=== PATIENT | male | born 1970 | race Caucasian/White ===

== ENCOUNTER 2022-06-02 17:53 | Emergency (ER) | payer OTHER, SELFPAY ==
--- NOTE | 2022-06-02 18:24 | XRR_ITS ---
PROCEDURE INFORMATION: Exam: XR Abdomen Exam date and time: 06/02/2022 7:26 PM Age: 51 years old Clinical indication: Abdominal pain; Acute; Additional info: Constipation TECHNIQUE: Imaging protocol: Radiologic exam of the abdomen. Views: Frontal supine view of the abdomen. 1 View. COMPARISON: No relevant prior studies available. FINDINGS: Gastrointestinal tract: Normal. No bowel dilation. Bones/joints: Unremarkable. XR/XR KUB [id number] IMPRESSION: No acute findings.
[2022-06-02 18:55] VITALS: BP 157/100; PULSE 95; RESP 16; TEMP 37.2; O2SAT 99; BMI 27.1
[2022-06-02 20:04] VITALS: BP 167/97; PULSE 101; RESP 18; O2SAT 98
--- NOTE | 2022-06-02 21:52 | CTR_ITS ---
PROCEDURE INFORMATION: Exam: CT Abdomen And Pelvis Without Contrast Exam date and time: 06/02/2022 9:57 PM Age: 51 years old Clinical indication: Constipation; Abdominal pain; Patient HX: Bilateral flank pain with no bm x 3 days. TECHNIQUE: Imaging protocol: Computed tomography of the abdomen and pelvis without contrast. Radiation optimization: All CT scans at this facility use at least one of these dose optimization techniques: automated exposure control; mA and/or kV adjustment per patient size (includes targeted exams where dose is matched to clinical indication); or iterative reconstruction. REPORTING DATA: Count of CT and Cardiac NM exams in prior 12 months: This patient has received 0 known CTs and 0 known cardiac nuclear medicine studies in the 12 months prior to the current study. COMPARISON: CR (ABDOMEN, ) 06/02/2022 7:26 PM RADIATION DOSE METRICS: Total DLP (mGy-cm): 693.93 FINDINGS: Lungs: Left lower lobe 3.3 mm pulmonary nodule with an additional 3.6 mm pulmonary nodule, consider dedicated chest CT for further evaluation. Liver: Cirrhotic liver suspected. Gallbladder and bile ducts: Normal. No calcified stones. No ductal dilation. Pancreas: Normal. No ductal dilation. Spleen: Spleen enlarged at 13.8 cm. Adrenal glands: Normal. No mass. Kidneys and ureters: Normal. No hydronephrosis. Stomach and bowel: Constipation. Appendix: No evidence of appendicitis. Intraperitoneal space: Unremarkable. No free air. No significant fluid collection. Vasculature: Unremarkable. No abdominal aortic aneurysm. Lymph nodes: Unremarkable. No enlarged lymph nodes. Urinary bladder: Mild urinary bladder wall thickening may be due to nondistention, please correlate for possible cystitis Reproductive: Unremarkable as visualized. Bones/joints: Unremarkable. No acute fracture. Soft tissues: Unremarkable. CT/CT kidney stone [id number] IMPRESSION: 1. Negative for acute inflammatory process in the abdomen or pelvis. 2. Mild urinary bladder wall thickening may be due to nondistention, please correlate for possible cystitis 3. Left lower lobe 3.3 mm pulmonary nodule with an additional 3.6 mm pulmonary nodule, consider dedicated chest CT for further evaluation. 4. Cirrhotic liver suspected. 5. Constipation. 6. Spleen enlarged at 13.8 cm.
--- NOTE | 2022-06-02 21:55 | ED_ITS ---
HPI - Abdominal Pain General: Chief Complaint: Abdominal Pain Stated Complaint: Constpation Time Seen by Provider: 06/02/22 21:40 Source: patient History of Present Illness: 51-year-old male who comes in complaining of abdominal pain and constipation. The patient states he started having burning with urination and pain at the tip of his penis and bilateral flank pain approximately 5 days ago. He thought he maybe had a urinary tract infection so he started taking Azo. He states for the past 4 days, has not been able to have a bowel movement. He has been passing flatus. No previous abdominal surgeries. He tried drinking lots of fluids as well as using a suppository with no results. He has not had a fever. He denies hematuria. He has not been vomiting. Review of Systems Narrative: See HPI Physical Exam Const: COMMON NORMALS: no acute distress, healthy appearing and well nourished HENMT: COMMON NORMALS: normocephalic, external ears normal, Normal external nose present and moist oral mucous membranes HEAD & SCALP: normocephalic NOSE: Normal external nose present EXTERNAL EAR: Yes external ears normal Eye: COMMON NORMALS: Equal, round and reactive pupils present, EOMs intact bilaterally and no scleral icterus PUPIL: Yes Equal, round and reactive pupils present Neck/C-Spine: COMMON NORMALS: no meningeal signs Resp: COMMON NORMALS: normal respiratory effort, No use of accessory muscles and clear to auscultation bilaterally AUSCULTATION: clear to auscultation bilaterally Cardio: COMMON NORMALS: regular rate and regular rhythm RATE: regular rate RHYTHM: regular rhythm GI: COMMON NORMALS: Normal to inspection, nondistended, normoactive bowel sounds present and Soft to palpation PALPATION: Yes Soft to palpation OTHER: Decreased bowel sounds, abdomen is soft, no rebound or guarding, diffuse tenderness Extremity: OTHER: No swelling or tenderness Neuro: MENINGEAL SIGNS: Yes no meningeal signs Course ED course: Patient's had an IV placed and labs obtained. He has been given IV fluids. His laboratory studies do reveal an elevated white blood cell count of 16.9. On CT, he has constipation but no other acute intra-abdominal findings. There is no intrarenal or ureteral stones. Patient's been given IV Toradol for pain. Vital Signs: Vital signs: Vital Signs Temperature 98.9 F 06/02/22 18:55 Pulse Rate 101 H 06/02/22 20:04 Respiratory Rate 18 06/02/22 20:04 Blood Pressure 167/97 06/02/22 20:04 Pulse Oximetry 98 06/02/22 20:04 Oxygen Delivery Me thod 06/02/22 20:04 MDM - Abdominal Pain Medical Decision Making Treatment for [id number] male who presents with a 5-day history of dysuria with associated constipation. No vomiting or fever. Hypoactive bowel sounds with diffuse abdominal tenderness on examination. KUB is unremarkable. Concern for possible UTI versus kidney stone versus bowel obstruction versus constipation. Urinalysis does show UTI. CT shows changes consistent with constipation. The patient's been given a dose of. He has been sent home with GoLytely. Recommend that he also take MiraLAX daily and Colace twice daily. We will place him on Keflex 500 mg 3 times daily x7 days. Urine culture has been sent. Lab Data 06/02/22 22:10 06/02/22 22:10 Labs/Radiology: Radiology Impressions KUB X-Ray 06/02/22 18:24 IMPRESSION: No acute findings. Abdomen/Pelvis CT 06/02/22 21:52 IMPRESSION: 1. Negative for acute inflammatory process in the abdomen or pelvis. 2. Mild urinary bladder wall thickening may be due to nondistention, please correlate for possible cystitis 3. Left lower lobe 3.3 mm pulmonary nodule with an additional 3.6 mm pulmonary nodule, consider dedicated chest CT for further evaluation. 4. Cirrhotic liver suspected. 5. Constipation. 6. Spleen enlarged at 13.8 cm. Laboratory Results WBC 16.9 10^3/uL (4.0-10.0) H 06/02/22 22:10 RBC 5.09 10^6/uL (4.1-5.3) 06/02/22 22:10 Hgb 15.7 g/dL (11.7-16.6) 06/02/22 22:10 Hct 46.5 % (42.0-52.0) 06/02/22 22:10 MCV 91.4 fl (80-94) 06/02/22 22:10 MCH 30.8 pg (28.0-34.0) 06/02/22 22:10 MCHC 33.8 g/dL (30.0-36.0) 06/02/22 22:10 RDW 12.1 % (12.1-15.1) 06/02/22 22:10 Plt Count 260 10^3/cmm (130-400) 06/02/22 22:10 MPV 9.8 fL (7.4-10.4) 06/02/22 22:10 Neut % (Auto) 76.4 % 06/02/22 22:10 Lymph % (Auto) 15.4 % 06/02/22 22:10 [place] % (Auto) 6.6 % 06/02/22 22:10 Eos % (Auto) 0.7 % 06/02/22 22:10 Baso % (Auto) 0.5 % 06/02/22 22:10 Neut # (Auto) 12.94 10^3/uL (1.8-7.7) H 06/02/22 22:10 Lymph # (Auto) 2.6 10^3/uL (0.8-4.8) 06/02/22 22:10 [place] # (Auto) 1.1 10^3/uL (0.2-0.9) H 06/02/22 22:10 Eos # (Auto) 0.1 10^3/uL (0.0-0.8) 06/02/22 22:10 Baso # (Auto) 0.1 10^3/uL (0.0-0.1) 06/02/22 22:10 Nucleated RBC % (auto) 0 % 06/02/22 22:10 Nucleated RBCs # 0.0 /100WBC 06/02/22 22:10 Sodium 136 mmol/L (136-145) 06/02/22 22:10 Potassium 4.0 mmol/L (3.5-5.1) 06/02/22 22:10 Chloride 97 mmol/L (98-107) L 06/02/22 22:10 Carbon Dioxide 25 mmol/L (22-29) 06/02/22 22:10 Anion Gap 18.0 (5-19) 06/02/22 22:10 BUN 9 mg/dL (6-20) 06/02/22 22:10 Creatinine 0.8 mg/dL (0.7-1.2) 06/02/22 22:10 GFR Calculation 101.5 mL/min (90-130) 06/02/22 22:10 Glucose 125 mg/dL (65-115) H 06/02/22 22:10 Calculated Osmolality 282 mOsm/kg (285-295) L 06/02/22 22:10 Calcium 9.1 mg/dL (8.5-10.5) 06/02/22 22:10 Total Bilirubin 1.0 mg/dL (0.15-1.2) 06/02/22 22:10 AST 52 U/L (0-40) H 06/02/22 22:10 ALT 125 U/L (0-41) H 06/02/22 22:10 Alkaline Phosphatase 146 U/L (40-130) H 06/02/22 22:10 Total Protein 7.6 g/dL (6.6-8.7) 06/02/22 22:10 Albumin 3.8 g/dL (3.5-5.2) 06/02/22 22:10 Globulin 3.8 g/dL (1.3-4.6) 06/02/22 22:10 Lipase 22 U/L (13-60) 06/02/22 22:10 Urine Color [place] (Yellow) 06/02/22 23:00 Urine Appearance Sl hazy (CLEAR) A 06/02/22 23:00 Urine pH 7 (5-7) 06/02/22 23:00 Ur Specific [place] 1.005 (1.005-1.030) 06/02/22 23:00 Urine Protein Trace (Negative) 06/02/22 23:00 Urine Glucose (UA) Norm (Normal) 06/02/22 23:00 Urine Ketones 1+ (Negative) H 06/02/22 23:00 Urine Blood 3+ (Negative) H 06/02/22 23:00 Urine Nitrate Positive (Negative) H 06/02/22 23:00 Urine Bilirubin Neg (Negative) 06/02/22 23:00 Urine Urobilinogen Norm mg/dL (Negative) 06/02/22 23:00 Ur Leukocyte Esterase 2+ (Negative) H 06/02/22 23:00 Urine RBC 15-25 /hpf (0-2) H 06/02/22 23:00 Urine WBC >100 /hpf (0-5) H 06/02/22 23:00 Ur Squamous Epith Cells 0-4 /hpf (0-5) H 06/02/22 23:00 Amorphous Sediment Not Reportable 06/02/22 23:00 Urine Bacteria 2+ /hpf (NONE) H 06/02/22 23:00 Discharge Plan Discharge Patient Disposition: Home Clinical Impression: Constipation, Urinary tract infection Condition: Stable Prescriptions: New cephalexin 500 mg capsule 500 mg PO Q8H 7 Days Qty: 21 0RF Discharge Orders: Discharge ED (Routine); Ordered 06/02/22 Ordered By: Elva Roberson Discharge Diet: Advance as tolerated Discharge Activity: Resume usual activity Patient Instructions: Constipation (DC), Urinary Tract Infection in Men (DC), Opioid Safety, Pain Management Activity Restrictions/Additional Instructions: Take the antibiotics 3 times daily until completely gone. Make sure you are drinking plenty of fluids. Take MiraLAX daily and Colace twice daily. Return to the ER if you are having increased pain, persistent fever or vomiting. You can take Tylenol and ibuprofen as needed for pain and fever. Follow-up next week with your primary care doctor. Coding Level of Care Code ED Household Appliance Installer for Myrna King
[2022-06-02] MEDS: ketorolac 30 mg/mL INJ 15 MG IVP (22:07)
[2022-06-02] MEDS: sodium chloride 0.9% 1,000 ML 999 ML IV (22:07)
[2022-06-02 22:16] LABS: Basophils # 0.1 10^3/uL (0.0-0.1); Basophils % 0.5 %; Eosinophils # 0.1 10^3/uL (0.0-0.8); Eosinophils % 0.7 %; Hematocrit 46.5 % (42.0-52.0); Hemoglobin 15.7 g/dL (11.7-16.6); Lymphocytes # 2.6 10^3/uL (0.8-4.8); Lymphocytes % 15.4 %; Mean Corpuscular HGB Conc 33.8 g/dL (30.0-36.0); Mean Corpuscular Hemoglobin 30.8 pg (28.0-34.0); Mean Corpuscular Volume 91.4 fl (80-94); Mean Platelet Volume 9.8 fL (7.4-10.4); Monocytes # 1.1 10^3/uL (0.2-0.9); Monocytes % 6.6 %; Neutrophils # 12.94 10^3/uL (1.8-7.7); Neutrophils % 76.4 %; Nucleated Red Blood Cells % 0 %; Platelet Count 260 10^3/cmm (130-400); Red Blood Count 5.09 10^6/uL (4.1-5.3); Red Cell Distribution Width 12.1 % (12.1-15.1); White Blood Count 16.9 10^3/uL (4.0-10.0)
[2022-06-02 22:41] LABS: Alanine Aminotransferase 125 U/L (0-41); Albumin Level 3.8 g/dL (3.5-5.2); Alkaline Phosphatase 146 U/L (40-130); Aspartate Amino Transferase 52 U/L (0-40); Blood Urea Nitrogen 9 mg/dL (6-20); Calcium 9.1 mg/dL (8.5-10.5); Carbon Dioxide 25 mmol/L (22-29); Chloride 97 mmol/L (98-107); Creatinine Clr Calc Pharmacy 126.5721; Globulin 3.8 g/dL (1.3-4.6); Glomerular Filtration Rate 101.5 mL/min (90-130); Glucose 125 mg/dL (65-115); Lipase 22 U/L (13-60); Osmolality Calculated 282 mOsm/kg (285-295); Sodium 136 mmol/L (136-145); Total Protein 7.6 g/dL (6.6-8.7)
[2022-06-02 23:08] LABS: Glucose Urine UA Norm (Normal); Protein Urine Trace (Negative); Specific Gravity, Urine 1.005 (1.005-1.030); Urine Appearance SL Hazy (CLEAR); Urine Color Orange (Yellow); pH Urine 7 (5-7)
[2022-06-02 23:09] LABS: Add Urine Microscopic? YES; Bilirubin Urine Neg (Negative); Blood Urine 3+ (Negative); Ketones Urine 1+ (Negative); Leukocyte Esterase Urine 2+ (Negative); Nitrate Urine Positive (Negative); Urobilinogen Urine Norm (Negative)
[2022-06-02 23:17] LABS: WBC Urine >100 /hpf (0-5)
[2022-06-02 23:19] LABS: Add Urine Culture? Yes; Bacteria Urine 2+ /hpf; RBC Urine 15-25 /hpf (0-2); Squamous Epithelial Cell Urine 0-4 /hpf (0-5)
[2022-06-02] MEDS: cephALEXin 500 mg Capsule PO (23:23)
[2022-06-02] MEDS: peg /e-lyte soln 4,000 mL Btl 1500 ML PO (23:24)
[2022-06-02 23:28] VITALS: BP 150/89; RESP 16; O2SAT 98
--- NOTE | 2022-06-13 16:03 | DCPLANNER ---
Addendum entered by Pita Colunga 06/21/22 08:46: Patient had a follow up appointment to [facility] hospital [facility] at [facility] - patient did not attend appointment. Addendum entered by Pita Colunga 06/13/22 16:04: aviation manager called [facility] - gave clinic patients information - a follow up appointment was scheduled for Monday, June 20, 2022 at 11:[address] Thornton. aviation manager called patient and gave him the appointment information. Original Note: 06.11.22 - patient was called due to no primary care physician - patient stated that he would like help in getting established with a primary care physician.
== END 2022-06-02 23:30 | disposition home or self-care (01) ==
PROVIDERS: Emergency Provider Emergency Medicine
DX: K59.00 Constipation, unspecified (principal); N39.0 Urinary tract infection, site not specified
CPT/HCPCS: 74018; 74176; 80053; 81001; 83690; 85025; 87077; 87086; 87186; 96361; 96374; 99285; J1885; J7030

== ENCOUNTER 2022-12-29 14:24 | Emergency (ER) | payer SELFPAY ==
[2022-12-29 14:27] VITALS: BP 163/86; PULSE 77; RESP 14; TEMP 36.6; O2SAT 98; BMI 27.1
--- NOTE | 2022-12-29 14:31 | XR_ITS ---
WS: [id number] views of the left fourth finger, 12/29/2022 Clinical Data: 4th finger laceration Comparison: None. Findings: No fractures or dislocations are seen. There is a soft tissue indentation of the tip of the left four th finger overlying the ungual tuft. No foreign bodies or fractures are seen.. The remainder of the f ingers is normal. There is cystic change of the scaphoid which may be osteonecrosis from an unhealed fracture. Impression: Soft tissue injury to the ungual tuft of distal phalanx of the left fourth finger but no fracture or foreign body is seen.
[2022-12-29] MEDS: tetanus-dipt-pertussis 0.5 mL SDV IM (14:54)
[2022-12-29] MEDS: HYDROcodone-acetaminophen 5-325 mg Tablet 1 TAB PO (14:56)
--- NOTE | 2022-12-29 16:54 | ED_ITS ---
Documented by User: Josi Pang, OCCUPATIONAL HEALTH MANAGER-C 12/29/22 17:01 HPI - Wound/Laceration General: Chief Complaint: Wound/Laceration Stated Complaint: left hand finger cut Time Seen by Provider: 12/29/22 14:31 History of Present Illness: Patient is in today for finger laceration. He reports that he got his left fourth finger cyst caught in the saw at home. Patient reports that he knows that there is no suture repair that can be done for that a big chunk of skin is missing. He states that he really just wants to have x-rays to make sure that it is not broken and also up-to-date on his tetanus. He cannot recall his last tetanus vaccination. Review of Systems Skin/Breast: Reports: other (Skin avulsion/laceration to the left fourth finger from a circular saw) Physical Exam Const: COMMON NORMALS: no acute distress, patient oriented x3 and alert Resp: COMMON NORMALS: normal respiratory effort and No use of accessory muscles Neuro: COMMON NORMALS: patient oriented x3 SENSORIUM/ORIENTATION: Yes alert Skin: OTHER: Left fourth finger lateral tip there is a large skin avulsion where part of the pad is avulsed. This does not involve the nailbed. The bleeding is controlled. CSM within normal limits to the finger. Course Vital Signs: Vital signs: Vital Signs Temperature 97.8 F 12/29/22 14:27 Pulse Rate 77 12/29/22 14:27 Respiratory Rate 14 12/29/22 14:27 Blood Pressure 163/86 12/29/22 14:27 Pulse Oximetry 98 12/29/22 14:27 Oxygen Delivery Me thod Room Air 12/29/22 14:27 MDM - Wound/Laceration Medical Decision Making Patient is in for skin avulsion to the finger. X-ray shows soft tissue injury to the ungual tuft of the left fourth finger with no fracture appreciated. Patient is not concerned about healing results and does not want referred to orthopedics. He states that he does not want to undergo skin grafting or anything else. He wants to allow this to heal by natural intent. Updated tetanus vaccination today. One-time dose of hydrocodone was provided in ER today. The wound was irrigated extensively and dressed with Xeroform gauze and Telfa and then padded with an aluminum splint just for protection. Advised patient to monitor closely for signs and symptoms of infection prophylactic antibiotic cephalexin was given to the patient. Advised patient to return to the ER as needed for new or worsening symptoms. No radiology studies performed this visit Discharge Plan Discharge Patient Disposition: Home Clinical Impression: Avulsion of skin Condition: Stable Prescriptions: New cephalexin 500 mg capsule 500 mg PO BID 7 Days Qty: 14 0RF Discharge Orders: Discharge ED (Routine); Ordered 12/29/22 Ordered By: Josi Pang Discharge Diet: Usual diet Discharge Activity: Resume usual activity Patient Instructions: Skin Avulsion (ED), Opioid Safety, Pain Management Activity Restrictions/Additional Instructions: Take antibiotics as directed. Keep wound clean and dry. Use padded dressing and finger splint to protect the wound for the next few days. Your tetanus was updated today in the ER. Follow-up with your primary care provider. Return to the ER as needed for new or worsening symptoms Coding Level of Care Code ED Electronic Commerce Specialist for Chg Fwd Documented by User: Casey Zamora DO 12/30/22 06:31 HPI - Wound/Laceration General: Chief Complaint: Wound/Laceration Stated Complaint: left hand finger cut Time Seen by Provider: 12/29/22 14:31 Course Vital Signs: Vital signs: Vital Signs Temperature 97.8 F 12/29/22 14:27 Pulse Rate 77 12/29/22 14:27 Respiratory Rate 14 12/29/22 14:27 Blood Pressure 163/86 12/29/22 14:27 Pulse Oximetry 98 12/29/22 14:27 Oxygen Delivery Me thod Room Air 12/29/22 14:27 MDM - Wound/Laceration Medical Decision Making Patient is in for skin avulsion to the finger. X-ray shows soft tissue injury to the ungual tuft of the left fourth finger with no fracture appreciated. Patient is not concerned about healing results and does not want referred to orthopedics. He states that he does not want to undergo skin grafting or anything else. He wants to allow this to heal by natural intent. Updated tetanus vaccination today. One-time dose of hydrocodone was provided in ER today. The wound was irrigated extensively and dressed with Xeroform gauze and Telfa and then padded with an aluminum splint just for protection. Advised patient to monitor closely for signs and symptoms of infection prophylactic antibiotic cephalexin was given to the patient. Advised patient to return to the ER as needed for new or worsening symptoms. Chart reviewed and patient discussed with midlevel. Agree with assessment and plan. Discharge Plan Discharge Patient Disposition: Home Clinical Impression: Avulsion of skin Condition: Stable Prescriptions: New cephalexin 500 mg capsule 500 mg PO BID 7 Days Qty: 14 0RF Discharge Orders: Discharge ED (Routine); Ordered 12/29/22 Ordered By: Josi Pang Discharge Diet: Usual diet Discharge Activity: Resume usual activity Patient Instructions: Skin Avulsion (ED), Opioid Safety, Pain Management Activity Restrictions/Additional Instructions: Take antibiotics as directed. Keep wound clean and dry. Use padded dressing and finger splint to protect the wound for the next few days. Your tetanus was updated today in the ER. Follow-up with your primary care provider. Return to the ER as needed for new or worsening symptoms Coding Level of Care Code ED Electronic Commerce Specialist for Myrna King
== END 2022-12-29 15:13 | disposition home or self-care (01) ==
PROVIDERS: Emergency Provider Nurse Practitioner Family
DX: S61.215A Laceration without foreign body of left ring finger without damage to nail, initial encounter (principal); W27.0XXA Contact with workbench tool, initial encounter; Z23 Encounter for immunization
CPT/HCPCS: 73140; 90471; 90715; 99283

== ENCOUNTER 2023-09-18 19:50 | Emergency (ER) | payer SELFPAY ==
[2023-09-18 19:52] VITALS: BMI 27.1
--- NOTE | 2023-09-18 20:03 | CTR_ITS ---
PROCEDURE INFORMATION: Exam: CT Head Without Contrast Exam date and time: 09/18/2023 8:13 PM Age: 52 years old Clinical indication: Dizziness TECHNIQUE: Imaging protocol: Computed tomography of the head without contrast. Sagittal and coronal reformatted images were created and reviewed. Radiation optimization: All CT scans at this facility use at least one of these dose optimization techniques: automated exposure control; mA and/or kV adjustment per patient size (includes targeted exams where dose is matched to clinical indication); or iterative reconstruction. COMPARISON: No relevant prior studies available. RADIATION DOSE METRICS: Total DLP (mGy-cm): 1074.9 FINDINGS: Brain: No acute intracranial hemorrhage. No acute infarct. No intra-axial or extra-axial masses. Hall-white matter differentiation is preserved. No cerebral edema. No extra-axial fluid collections. No midline shift. No evidence for Chiari 1 malformation. Cerebral ventricles: No hydrocephalus. Paranasal sinuses: Extensive opacification in the left sphenoid and bilateral maxillary sinuses and mild opacification in the left frontal sinus. Mastoid air cells: Mastoid air cells are clear bilaterally. Orbital cavities: No acute abnormality in the visualized orbits. Bones: Unremarkable. No acute fracture. Soft tissues: No acute abnormality of the extracranial soft tissues. CT/CT head wo con* [id number] IMPRESSION: 1. No acute abnormality of the brain. 2. Extensive opacification in the left sphenoid and bilateral maxillary sinuses and mild opacification in the left frontal sinus.
--- NOTE | 2023-09-18 20:03 | XRR_ITS ---
PROCEDURE INFORMATION: Exam: XR Chest Exam date and time: 09/18/2023 8:11 PM Age: 52 years old Clinical indication: Other: Dizziness TECHNIQUE: Imaging protocol: Radiologic exam of the chest. Views: 1 view. COMPARISON: No relevant prior studies available. FINDINGS: Lungs: Lungs are clear bilaterally. Pleural spaces: No pleural effusion. No pneumothorax. Heart/Mediastinum: The cardiac silhouette and mediastinal contours are unremarkable. Bones/joints: Unremarkable for age. XR/XR chest 1V portable [id number] IMPRESSION: No acute cardiopulmonary process.
--- NOTE | 2023-09-18 20:06 | ECG_ITS ---
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 Measurements Intervals Leary Rate: 57 P: 53 SC: 136 QRS: 65 QRSD: 94 T: 77 QT: 417 QTc: 407 Interpretive Statements SINUS BRADYCARDIA No previous ECG available for comparison Electronically Signed On 09-22-2023 13:20:27 CDT by Eleuterio De Los Santos M.D. [email or web address]
--- NOTE | 2023-09-18 20:06 | ED_ITS ---
HPI - Neuro Symptoms/Deficit 2 General: Chief Complaint: Neuro Symptoms/Deficit Stated Complaint: facial, right extremity numbness Time Seen by Provider: 09/18/23 19:52 Source: patient and EMS Mode of arrival: EMS Limitations: no limitations History of Present Illness: 52-year-old male states last 2 days he h as felt dizzy lightheaded had some nausea states that tingling in all of his extremities. He does admit to using meth over the weekend and has been exposed to the heat. He had some slight headaches denies any vomiting denies any diarrhea he denies any chest pain. Associated symptoms: Reports nausea; Deny chest pain, headache(s) or vomiting Review of Systems 2 Const: Denies: fever(s), chills, body aches or change in appetite Eyes: Denies: blurry vision ENMT: Denies: throat pain or dental pain Card: Reports: lightheadedness; Denies: chest pain Resp: Denies: dyspnea GI: Reports: nausea; Denies: abdominal pain, vomiting or diarrhea Musc: Denies: neck pain or back pain Skin/Breast: Denies: rash Neuro: Reports: numbness in extremities; Denies: headache(s) NIH stroke score 2 NIHSS: Level Of Consciousness - 1a: 0 Level Of Consciousness Questions - 1b: Both Correct Level Of Consciousness Commands - 1c: Both Correct Best Gaze - 2: Normal Visual Arndt - 3: No Visual Loss Facial Palsy - 4: N ormal Motor Arm Right - 5: No Drift Motor Arm Left - 5: No Drift Motor Leg Right - 6: No Drift Motor Leg Left - 6: No Drift Limb Ataxia - 7: A bsent Sensory - 8: Normal Best Language - 9: No Aphasia Extinction And Inattention - 11: 0 Physical Exam 2 Const: COMMON NORMALS: no acute distress, patient oriented x3 and healthy appearing HENMT: COMMON NORMALS: normocephalic and atraumatic HEAD & SCALP: n ormocephalic and atraumatic Eye: COMMON NORMALS: Equal, round and reactive pupils present and EOMs intact bilaterally PUPIL: Yes Equal, round and reactive pupils present Neck/C-Spine: COMMON NORMALS: full ROM and supple Chest: COMMONS NORMALS: normal inspection of the chest Resp: COMMON NORMALS: normal respiratory effort, No retractions, No use of accessory muscles and clear to auscultation bilaterally AUSCULTATION: clear to auscultation bilaterally Cardio: COMMON NORMALS: regular rate, regular rhythm and No murmurs present (Cardio) RATE: regular rate RHYTHM: regular rhythm Extremity: COMMON NORMALS: normal to inspection and full ROM Neuro: COMMON NORMALS: patient oriented x3, moves all extremities and no focal motor deficits CRANIAL NERVES: Yes CN normal except as noted SPEECH: s peech normal GAIT: Yes Normal gait present MOTOR EXAM: 5/5 motor strength present throughout Psych: COMMON NORMALS: mental status grossly normal, Normal thought process present and cooperative THOUGHT PROCESS: Normal thought process present Skin: COMMON NORMALS: no rashes or lesions noted and no wounds GENERAL SKIN EXAM: no rashes or lesions noted Course 2 Vital Signs: Vital signs: Vital Signs Pulse Rate 71 09/18/23 20:50 Respiratory Rate 28 H 09/18/23 20:50 Blood Pressure 158/88 09/18/23 20:50 Pulse Oximetry 96 09/18/23 20:50 Oxygen Delivery Me thod Room Air 09/18/23 20:50 MDM - Neuro Symptoms/Deficit Medical Decision Making Patient presents here with dizziness likely due to heat exposure while walking methamphetamine abuse he has no signs of stroke. He is ambulatory NIH is 0. Head CT blood work here is all normal he is stable for discharge he is follow-up with PCP return if worsening he understands agrees to plan. Medical Records I reviewed the patient's medical records. Lab Data I reviewed the patient's lab results. 09/18/23 20:30 09/18/23 20:30 Radiology Impressions Chest X-Ray 09/18/23 20:03 IMPRESSION: No acute cardiopulmonary process. Head CT 09/18/23 20:03 IMPRESSION: 1. No acute abnormality of the brain. 2. Extensive opacification in the left sphenoid and bilateral maxillary sinuses and mild opacification in the left frontal sinus. Laboratory Results WBC 6.64 10^3/uL (3.29-11.43) 09/18/23 20:30 RBC 4.62 10^6/uL (3.85-5.65) 09/18/23 20:30 Hgb 14.60 g/dL (11.27-16.99) 09/18/23 20:30 Hct 41.2 % (37-53) 09/18/23 20:30 MCV 89.2 fl (82-101) 09/18/23 20:30 MCH 31.6 pg (27-33) 09/18/23 20:30 MCHC 35.4 g/dL (30-55) 09/18/23 20:30 RDW 11.8 % (12.1-15.1) L 09/18/23 20:30 Plt Count 226 10^3/cmm (157-399) 09/18/23 20:30 MPV 10.2 fL (7.4-10.4) 09/18/23 20:30 Neut % (Auto) 51.5 % 09/18/23 20:30 Lymph % (Auto) 33.6 % 09/18/23 20:30 [place] % (Auto) 8.9 % 09/18/23 20:30 Eos % (Auto) 4.8 % 09/18/23 20:30 Baso % (Auto) 0.9 % 09/18/23 20:30 Neut # (Auto) 3.42 10^3/uL (1.8-7.7) 09/18/23 20:30 Lymph # (Auto) 2.2 10^3/uL (0.8-4.8) 09/18/23 20:30 [place] # (Auto) 0.6 10^3/uL (0.2-0.9) 09/18/23 20:30 Eos # (Auto) 0.3 10^3/uL (0.0-0.8) 09/18/23 20:30 Baso # (Auto) 0.1 10^3/uL (0.0-0.1) 09/18/23 20:30 Nucleated RBC % (auto) 0 % 09/18/23 20:30 Nucleated RBCs # 0.0 /100WBC 09/18/23 20:30 Sodium 136 mmol/L (136-145) 09/18/23 20:30 Potassium 3.3 mmol/L (3.5-5.1) L 09/18/23 20:30 Chloride 102 mmol/L (98-107) 09/18/23 20:30 Carbon Dioxide 23 mmol/L (22-29) 09/18/23 20:30 Anion Gap 14.3 (5-19) 09/18/23 20:30 BUN 13 mg/dL (6-20) 09/18/23 20:30 Creatinine 0.8 mg/dL (0.7-1.2) 09/18/23 20:30 GFR Calculation 101.1 mL/min (90-130) 09/18/23 20:30 Glucose 165 mg/dL (65-115) H 09/18/23 20:30 Calculated Osmolality 286 mOsm/kg (285-295) 09/18/23 20:30 Calcium 9.2 mg/dL (8.5-10.5) 09/18/23 20:30 Total Bilirubin 0.6 mg/dL (0.15-1.2) 09/18/23 20:30 AST 72 U/L (0-40) H 09/18/23 20:30 ALT 104 U/L (0-41) H 09/18/23 20:30 Alkaline Phosphatase 87 U/L (40-130) 09/18/23 20:30 Creatine Kinase 80 U/L (39-308) 09/18/23 20:30 Total Protein 6.9 g/dL (6.6-8.7) 09/18/23 20:30 Albumin 4.0 g/dL (3.5-5.2) 09/18/23 20:30 Globulin 2.9 g/dL (1.3-4.6) 09/18/23 20:30 Ethyl Alcohol < 10 mg/dL (0-10) 09/18/23 20:30 All radiology interpretation(s) finalized by discharge EKG Data EKG 1: I personally reviewed and interpreted this EKG as follows: EKG interpretation date: 09/18/23 EKG interpretation time: 20:39 Interpretation: sinus obed hr [address] or t wave abnormalities qrs 94 qtc 411 Discharge Plan Discharge Patient Disposition: Home Clinical Impression: Dizziness Condition: Stable Discharge Orders: Discharge ED (Routine); Ordered 09/18/23 Ordered By: Sonal Caldwell Discharge Diet: Advance as tolerated Discharge Activity: Resume usual activity Patient Instructions: Dizziness (ED) Coding Level of Care Code ED Billing Department Supervisor for Myrna King
[2023-09-18 20:42] LABS: Basophils # 0.1 10^3/uL (0.0-0.1); Basophils % 0.9 %; Eosinophils # 0.3 10^3/uL (0.0-0.8); Eosinophils % 4.8 %; Hematocrit 41.2 % (37-53); Lymphocytes # 2.2 10^3/uL (0.8-4.8); Lymphocytes % 33.6 %; Mean Corpuscular HGB Conc 35.4 g/dL (30-55); Mean Corpuscular Hemoglobin 31.6 pg (27-33); Mean Corpuscular Volume 89.2 fl (82-101); Mean Platelet Volume 10.2 fL (7.4-10.4); Monocytes # 0.6 10^3/uL (0.2-0.9); Monocytes % 8.9 %; Neutrophils # 3.42 10^3/uL (1.8-7.7); Neutrophils % 51.5 %; Nucleated Red Blood Cells % 0 %; Platelet Count 226 10^3/cmm (157-399); Red Blood Count 4.62 10^6/uL (3.85-5.65); Red Cell Distribution Width 11.8 % (12.1-15.1); White Blood Count 6.64 10^3/uL (3.29-11.43)
[2023-09-18] MEDS: sodium chloride 0.9% 1,000 ML 999 ML IV (20:46)
[2023-09-18] MEDS: LORazepam 2 mg/mL INJ 10 mL MDV 1 MG IVP (20:46)
[2023-09-18 20:50] VITALS: BP 158/88; PULSE 71; RESP 28; O2SAT 96
[2023-09-18 20:55] LABS: Alanine Aminotransferase 104 U/L (0-41); Alkaline Phosphatase 87 U/L (40-130); Anion Gap 14.3 (5-19); Aspartate Amino Transferase 72 U/L (0-40); Blood Urea Nitrogen 13 mg/dL (6-20); Calcium 9.2 mg/dL (8.5-10.5); Carbon Dioxide 23 mmol/L (22-29); Chloride 102 mmol/L (98-107); Creatine Phosphokinase 80 U/L (39-308); Creatinine Clr Calc Pharmacy 125.1338; Globulin 2.9 g/dL (1.3-4.6); Glomerular Filtration Rate 101.1 mL/min (90-130); Glucose 165 mg/dL (65-115); Osmolality Calculated 286 mOsm/kg (285-295); Potassium 3.3 mmol/L (3.5-5.1); Sodium 136 mmol/L (136-145); Total Bilirubin 0.6 mg/dL (0.15-1.2); Total Protein 6.9 g/dL (6.6-8.7)
[2023-09-18 21:40] LABS: Alcohol Level < 10 mg/dL (0-10)
[2023-09-18 22:17] VITALS: PULSE 95; RESP 16; O2SAT 96
== END 2023-09-18 22:15 | disposition home or self-care (01) ==
PROVIDERS: Emergency Provider Emergency Medicine
DX: R42 Dizziness and giddiness (principal); R00.1 Bradycardia, unspecified
CPT/HCPCS: 36415; 70450; 71045; 80053; 80307; 82550; 85025; 93005; 96374; 99285; J2060; J7030